=== PATIENT | male | born 2000 | race Caucasian/White ===

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

== ENCOUNTER 2024-04-15 21:08 | Emergency (ER) | payer OTHER, SELFPAY ==
[2024-04-15 21:10] VITALS: BP 161/95; PULSE 81; RESP 16; TEMP 36.4; O2SAT 100; BMI 24.0
[2024-04-15] MEDS: Lidocaine 1% /Epi 1:100 (20ml) 20 ML Vial 3 ML INFILT (21:37)
--- NOTE | 2024-04-15 22:16 | EDS_ITS ---
HPI <Dr. Lizeth Rodney MD - Last Filed: 04/16/24 00:18> History of Present Illness Chief Complaint: Head Injury Informant: patient Onset/Context/Timing Onset: Today Narrative Narrative: Patient presents after being struck in the forehead with a croquet ball. He has a laceration just above the right eyebrow. He denies loss of consciousness. He reports mild pain around the site only. No loss of consciousness and he did not fall to the ground. He has had no vision change, nausea, or vomiting. [facility] <Dr. Lizeth Rodney MD - Last Filed: 04/16/24 00:18> [facility] Medical History Hx of staphylococcal infection Medical History no medical history Home Medications ?Medication ?Instructions ?Recorded ?Last Taken ?Type NK 04/15/24 Unknown History Allergy/AdvReac Type Severity Reaction Status Date / Time No Known Allergies Allergy Verified 04/15/24 21:10 Family History no significant family his Surgical History Hx of tonsillectomy Hx of adenoidectomy History of repair of ACL Surgical History no surgical history Social History Smoking Status: Former smoker ROS <Dr. Lizeth Rodney MD - Last Filed: 04/16/24 00:18> ROS ED Constitutional Constitutional ED: Denies chills or fever(s) Eyes Eyes: Denies change in vision ENT ENT ED: Denies rhinorrhea or sore throat Cardiovascular Cardiovascular: Denies chest pain or palpitations Respiratory/Chest Respiratory/Chest: Denies cough or dyspnea Gastrointestinal Gastrointestinal: Denies abdominal pain, nausea or vomiting Musculoskeletal Musculoskeletal: Denies back pain or extremity pain Integumentary Reports other Details: Right forehead laceration ; Denies Abrasions or rash Neurologic Neurologic: Reports headache(s); Denies weakness Psychiatric Psychiatric: Denies anxiety or depression Allergic/Immunologic Allergic/Immunologic ED: Denies lip swelling or urticaria EXAM <Dr. Lizeth Rodney MD - Last Filed: 04/16/24 00:18> Physical Exam Const Vital Signs: 04/15/24 21:10 04/15/24 22:20 04/15/24 22:20 Temperature 97.5 F L 98.4 F Temperature Source Temporal Pulse Rate 81 77 Respiratory Rate 16 16 Respiratory Effort Normal Non-Labored Respiratory Depth Normal Respiratory Pattern Normal Blood Pressure 161/95 H 131/76 H Blood Pressure Mean 117 94 Pulse Ox 100 99 Oxygen Delivery Method Room Air Positive well nourished and well developed General Appearance ED: well developed HEENT HEENT Narrative: Stellate laceration noted to the right lower forehead. Bleeding well- controlled. Total laceration length is approximately 3.5 cm x 1 cm in width. Eyes PERRL and EOMs intact bilaterally Chest Wall inspection of chest normal and palpation of chest normal Resp normal respiratory effort and clear to auscultation bilaterally Cardio regular rhythm Rate: regular rate GI non-tender Palpation: soft Back/Spine Back/Spine Narrative: No C-spine tenderness. Extremity normal to inspection and full ROM Neuro oriented x3, moves all extremities, no focal motor deficits and no sensory deficits noted <CLAUDIA Gonzalez - Last Filed: 04/15/24 22:21> Physical Exam Const Vital Signs: 04/15/24 21:10 04/15/24 22:20 04/15/24 22:20 Temperature 97.5 F L 98.4 F Temperature Source Temporal Pulse Rate 81 77 Respiratory Rate 16 16 Respiratory Effort Normal Non-Labored Respiratory Depth Normal Respiratory Pattern Normal Blood Pressure 161/95 H 131/76 H Blood Pressure Mean 117 94 Pulse Ox 100 99 Oxygen Delivery Method Room Air [facility] <Dr. Lizeth Rodney MD - Last Filed: 04/16/24 00:18> [facility] Narrative Medical decision making narrative: Patient alert and appropriate has been since injury. I do not feel he needs CT imaging at this time. Laceration repaired by nurse practitioner. Please see procedure note below. Patient discharged to home with family with wound care instructions and advised to have sutures removed in 5 to 7 days. <CLAUDIA Gonzalez - Last Filed: 04/15/24 22:21> [facility] Treatment and Re-Evaluation Narrative: Procedure note: Patient has what appears to be a starlike open laceration to the right forehead just above the right eyebrow that also extends in the eyebrow. Full length is roughly 3.5 cm, with 1 centimeter. This is full-thickness. This area was anesthetized with lidocaine with epinephrine. Copiously irrigated with 200 cc of normal saline. I did trim the patient's eyebrow secondary to the laceration extending 0.5 cm into the right eyebrow. I was able to place 2 simple interrupted sutures of 5-0 chromic gut absorbing sutures in the middle. This was able to relieve some of the tension. I was then able to use 12 simple interrupted sutures of 6-0 Ethilon to close the rest of the wound. Patient tolerated well. Edges approximated nicely. He will have these removed in 7 days, go to urgent care, here or to his primary care physician. He was given wound care instructions, education to decrease any scarring. Will return for any redness, or any other concern. Stable for discharge. Discharge Plan Triage Chief Complaint: Head Injury Other Complaint: Laceration ED Midlevel Provider: Ramón Castellano ED Provider: Lizeth Rodney Dx/Rx/DC Orders Clinical Impression: Forehead laceration, Closed head injury Instructions: ED Head Injury (Adult), ED Laceration, All Closures Prescriptions: No Action NK Primary Care Provider: Care Physician,No Primary Referrals: Care Physician,No Primary [Primary Care Provider] - Activity Restrictions/Additional Instructions: Follow-up with your family doctor, a local urgent care, or the emergency room in 5 to 7 days to have sutures removed. Print Language: Macedonian Disposition Disposition: Home, Self Care Discharge Date/Time: 04/15/24 22:39
[2024-04-15 22:20] VITALS: BP 131/76; PULSE 77; RESP 16; TEMP 36.9; O2SAT 99
== END 2024-04-15 22:39 | disposition home or self-care (01) ==
PROVIDERS: Emergency Provider Emergency Medicine; Visit Provider Emergency Medicine
DX: S01.111A Laceration without foreign body of right eyelid and periocular area, initial encounter (principal); Z87.891 Personal history of nicotine dependence; S09.90XA Unspecified injury of head, initial encounter; W21.09XA Struck by other hit or thrown ball, initial encounter
CPT/HCPCS: 12013; 99284